=== PATIENT | male | born 1985 | race Two or more races ===

== ENCOUNTER 2017-09-13 14:15 | Emergency (ER) | payer BC ==
[2017-09-13 14:20] VITALS: BP 144/78; PULSE 88; TEMP 98.1; BMI 30.9
[2017-09-13] MEDS ORDERED: DIPHTH,PERTUSS(ACELL),TET 0.5 ML DISP.SYRIN IM ONE (14:49)
--- NOTE | 2017-09-13 14:51 | PDOC ---
History of Present Illness - General Chief Complaint: Laceration Stated Complaint: LACERATION ON EYEBROW Time Seen by Provider: 09/13/17 14:22 History Source: Patient Exam Limitations: No Limitations - History of Present Illness Initial Comments: 09/13/17 14:46 32-year-old male presents to the ED status post injury to his left eyebrow. Patient states was playing basketball when another individual struck him in the face causing him to bleed. Patient states had no LOC and had no head injury. Patient denied any changes of vision headache, or dizziness presently. Patient states is not up-to-date on tetanus. Timing/Duration: 1 hour Severity: mild Associated Symptoms: reports: denies symptoms Past History - Past Medical History Allergies/Adverse Reactions: Allergies Allergy/AdvReac Type Severity Reaction Status Date / Time No Known Allergies Allergy Verified 09/13/17 14:16 Home Medications: Ambulatory Orders NK [No Known Home Medication] 09/13/17 COPD: No HTN: Yes - Suicide/Smoking/Psychosocial Hx Smoking Status: No Smoking History: Never smoked Number of Cigarettes Smoked Daily: 0 Hx Alcohol Use: No Drug/Substance Use Hx: No Substance Use Type: None Patient Lives Alone: No Lives with/in: spouse/SO Review of Systems - Review of Systems Able to Perform ROS?: Yes Constitutional: No: Symptoms Reported HEENTM: Yes: See HPI Integumentary: Yes: Other (laceration to left eyebrow) Neurological: No: Headache, Dizziness *Physical Exam - Vital Signs Last Vital Signs Temp Pulse Resp BP Pulse Ox 98.1 F 88 18 144/78 99 09/13/17 14:16 09/13/17 14:16 09/13/17 14:16 09/13/17 14:16 09/13/17 14:16 - Physical Exam General Appearance: Yes: Nourished, Appropriately Dressed. No: Apparent Distress HEENT: positive: EOMI, LYLE Integumentary: positive: Other (noted 1.5 cm linear laceration to left eyebrow) Neurologic: positive: Motor Strength 5/5 (able to lie) Procedures - Laceration/Wound Repair Left Eye Wound Length: to 2.5 cm Wound's Depth, Shape: superficial, linear Irrigated w/ Saline: Yes Betadine Prep: Yes Anesthesia: 1% Lidocaine Amount of Anesthetic (ccs): 1 Deep Layer Suture Size/Type: 5:0 Number of Deep Layer Sutures: 5 Sterile Dressing Applied: Yes (w/ bactracin) Medical Decision Making - Medical Decision Making 09/13/17 14:48 Patient laceration to left eyebrow. Patient had no ocular or frontal bone involvement. Patient had sutures placed without difficulty. Patient to return here 5 days for removal. Patient ordered for tetanus. *DC/Admit/Observation/Transfer Diagnosis at time of Disposition: Laceration of left eyebrow Qualifiers: Encounter type: initial encounter Qualified Code(s): S01.112A - Laceration without foreign body of left eyelid and periocular area, initial encounter - Discharge Dispostion Disposition: HOME Condition at time of disposition: Improved - Referrals Referrals: Yamilet Renner MD [Primary Care Provider] - - Patient Instructions Printed Discharge Instructions: DI for Laceration Repair Additional Instructions: Please keep area clean and dry applying bacitracin to the area once a day. Please return here in 5 days for suture removal. Please also apply ice to the affected areas as much as you can tolerate for the next 2 days. - Post Discharge Activity
== END 2017-09-13 14:51 | disposition home or self-care (01) ==
LOC: JERFT 14:15 → JER 14:15 → JERFT 14:51
PROC: 0HQ1XZZ Repair Face Skin, External Approach (ICD-10-PCS; principal; 2017-09-13)
PROC: 3E0234Z Introduction of Serum, Toxoid and Vaccine into Muscle, Percutaneous Approach (ICD-10-PCS; 2017-09-13)
DX: S01.112A Laceration without foreign body of left eyelid and periocular area, initial encounter (principal); W50.0XXA Accidental hit or strike by another person, initial encounter; Y93.67 Activity, basketball; Y92.310 Basketball court as the place of occurrence of the external cause; Y99.8 Other external cause status
CPT/HCPCS: 90715; 99281-25

== ENCOUNTER 2021-02-20 05:00 | Emergency (ER) | payer BC ==
[2021-02-20 05:53] VITALS: BMI 32.5
[2021-02-20 09:02] VITALS: BP 140/99; PULSE 84; TEMP 98.8
== END 2021-02-20 09:02 | disposition home or self-care (01) ==
LOC: JER 05:00
DX: Z00.00 Encounter for general adult medical examination without abnormal findings (principal)
CPT/HCPCS: 82375; 99281-25